=== PATIENT | female | born 1980 | race Asian ===

== ENCOUNTER 2017-05-17 16:43 | Emergency (ER) | payer OTHER ==
[~2017-05-17] VITALS: Ht 157.5 cm; Wt 49.0 kg
--- NOTE | 2017-05-17 16:45 | NUR ---
BIB SELF, C/O COUGH/SOB AND CHEST PAIN X 4 HRS, 30 WEEKS , NAD NOTED, VSS, RESP EVEN AND UNLABORED, PT PUT ON HOSPITAL GOWN AND MONITOR. AT BS.
[2017-05-17] MEDS ORDERED: PREN1TAB81 PO (17:04)
[2017-05-17] MEDS ORDERED: PANTOPRAZOLE 40 MG TABLET.DR PO ONE ×2 (17:23→17:30)
[2017-05-17 17:49] LABS: APPEARANCE,URINE Clear (CLEAR); BILIRUBIN,URINE Negative (NEGATIVE); BLOOD, URINE Negative Ery/uL (NEGATIVE); COLOR,URINE Yellow (YELLOW); KETONES,URINE >=160 (NEGATIVE); LEUKOCYTE ESTERASE ,URINE Small (NEGATIVE); NITRITE, URINE Negative (NEGATIVE); PH,URINE 5.5 (5.0-8.0); PROTEIN,URINE Negative (NEGATIVE); UGLUCOSE Negative (NEGATIVE); UROBILINOGEN,URINE 0.2 EU/dL (0.2)
[2017-05-17] MEDS ORDERED: IV NS 0.9% 1,000 ML BAG IV ONE ×2 (18:00→20:00)
[2017-05-17 18:15] LABS: BACTERIA,URINE Few /HPF (None Seen); RBC,URINE NONE SEEN /HPF (0-2); SQUAMOUS EPITHELIAL CELL,UR Moderate /HPF (None Seen)
[2017-05-17 20:29] VITALS: BP 104/65
[2017-05-17] MEDS ORDERED: ACETAMINOPHEN 650 MG/20.3 ML UDC PO ONE (20:30)
--- NOTE | 2017-05-17 20:33 | NUR ---
Patient discharged to home in stable condition. Written and verbal after care instructions given. Patient verbalizes understanding of instruction.IV removed. Catheter intact and site benign. Pressure and 4x4 applied to site. No bleeding noted.
== END 2017-05-17 20:32 | disposition home or self-care (01) ==
LOC: ER 16:46
DX: O23.43 Unspecified infection of urinary tract in pregnancy, third trimester (principal); O98.513 Other viral diseases complicating pregnancy, third trimester; O99.283 Endocrine, nutritional and metabolic diseases complicating pregnancy, third trimester; B34.9 Viral infection, unspecified; E86.0 Dehydration; J18.9 Pneumonia, unspecified organism; O99.513 Diseases of the respiratory system complicating pregnancy, third trimester; Z88.1 Allergy status to other antibiotic agents; Z3A.30 30 weeks gestation of pregnancy
CPT/HCPCS: 81000-TC; 87086-TC; A4606; J7030; Z7610